=== PATIENT | female | born 1955 | race Caucasian/White ===

== ENCOUNTER 2017-11-18 08:31 | Day surgery (SDC) | payer OTHER ==
[2017-11-18] MEDS: GELATIN 12MM X 7 MM SPONGE (11:09)
[2017-11-18] MEDS: SOD CHLORIDE 0.9% 1,000 ML IV (13:32)
== END 2017-11-18 15:00 | disposition home or self-care (01) ==
LOC: SDS 08:31
DX: R80.9 Proteinuria, unspecified (principal); I12.9 Hypertensive chronic kidney disease with stage 1 through stage 4 chronic kidney disease, or unspecified chronic kidney disease; N18.9 Chronic kidney disease, unspecified
CPT/HCPCS: 50200; 77012; 82962; 88305; 88313; 88346; 88348; 88350

== ENCOUNTER 2017-12-07 06:55 | Day surgery (SDC) | payer OTHER ==
[2017-12-07] MEDS: PHENYLephrine 2.5% 15 ML OPH OPER (08:06)
[2017-12-07] MEDS: PREDNISOLONE ACET 1% 5 ML OPH OPER (08:06)
[2017-12-07] MEDS: SOD CHLORIDE 0.9% 1,000 ML IV (08:06)
[2017-12-07] MEDS: MOXIFLOXACIN 0.5% 3 ML OPH OPER (08:06)
[2017-12-07] MEDS: TROPICAMIDE 1% 3 ML OPH OPER (08:06)
[2017-12-07] MEDS: PROPARACAINE 0.5% 15 ML OPH OPER (08:06)
[2017-12-07] MEDS ORDERED: OXYCODONE/ACETAMINOPHEN (5/325) TAB PO (09:00)
[2017-12-07] MEDS ORDERED: LABETALOL HCL 20MG INJ IV (09:00)
[2017-12-07] MEDS ORDERED: ALBUTEROL 0.083% (NEB) 2.5 MG/3 ML AMP HHN (09:00)
[2017-12-07] MEDS ORDERED: ONDANSETRON 4 MG INJ IV (09:00)
[2017-12-07] MEDS ORDERED: MIDAZOLAM 1 MG/ML 2 ML INJ (09:32)
[2017-12-07] MEDS ORDERED: LIDOCAINE 4% (MPF) 5 ML INJ (09:55)
[2017-12-07] MEDS: CARBACHOL 0.01% 1.5 ML OPH INJ (09:55)
[2017-12-07] MEDS: CEFAZOLIN 1 GM INJ (09:55)
[2017-12-07] MEDS: DEXAMETHASONE 4 MG/ML 1 ML INJ (09:55)
[2017-12-07] MEDS ORDERED: PROPOFOL 20 ML (10:34)
[2017-12-07] MEDS ORDERED: LIDOCAINE 2% (SDV) 5 ML INJ (10:34)
[2017-12-07] MEDS: FENTAnyl 50 MCG/ML VIAL IV (11:07)
== END 2017-12-07 12:50 | disposition home or self-care (01) ==
LOC: SDS 06:55
DX: H26.9 Unspecified cataract (principal); I12.9 Hypertensive chronic kidney disease with stage 1 through stage 4 chronic kidney disease, or unspecified chronic kidney disease; E11.22 Type 2 diabetes mellitus with diabetic chronic kidney disease; N18.9 Chronic kidney disease, unspecified; E78.2 Mixed hyperlipidemia; E66.01 Morbid (severe) obesity due to excess calories; Z68.41 Body mass index [BMI] 40.0-44.9, adult; J45.909 Unspecified asthma, uncomplicated
CPT/HCPCS: 66984; 82962

== ENCOUNTER 2018-07-25 08:47 | Day surgery (SDC) | payer OTHER ==
[2018-07-25] MEDS ORDERED: LIDOCAINE 2% (SDV) 5 ML INJ (10:49)
[2018-07-25] MEDS ORDERED: PROPOFOL 40 ML (10:49)
[2018-07-25] MEDS ORDERED: EPHEDrine 25 MG/5 ML SYG (11:34)
[2018-07-25] MEDS ORDERED: PROPOFOL 20 ML (11:34)
[2018-07-25] MEDS ORDERED: ALBUTEROL 0.083% (NEB) 2.5 MG/3 ML AMP HHN (12:00)
[2018-07-25] MEDS ORDERED: ONDANSETRON 4 MG INJ IV (12:00)
== END 2018-07-25 15:11 | disposition home or self-care (01) ==
LOC: GIL 08:47
DX: K63.5 Polyp of colon (principal); I11.0 Hypertensive heart disease with heart failure; I50.9 Heart failure, unspecified; E11.9 Type 2 diabetes mellitus without complications; Z79.4 Long term (current) use of insulin
CPT/HCPCS: 45385; 82962; 88305